=== PATIENT | female | born 1960 | race Caucasian/White ===

== ENCOUNTER 2025-01-24 10:08 | Observation (INO) ==
--- NOTE | 2024-12-24 10:15 | PAT Medication Instructions ---
Medication Instructions Date of Service December 24, 2024 Home Medications cholecalciferol (vitamin D3) 50 mcg (2,000 unit) capsule 50 mcg PO QAM mecobalamin (vitamin B12) 500 mcg chewable tablet 500 mcg PO QAM omega-3 fatty acids 500 mg capsule 500 mg PO HS Thc Gummies 1 gummy PO HS bisoprolol fumarate 5 mg tablet 5 mg PO QAM boron aspartate 3 mg (as aspartate) capsule ([place] Complex) 3 mg PO QAM famotidine 40 mg tablet 40 mg PO QAM fexofenadine 60 mg tablet (Allergy Relief (fexofenadine)) 60 mg PO QAM fluoxetine 20 mg capsule (Prozac) 20 mg PO HS meloxicam 15 mg tablet 15 mg PO HS multivitamin 1 tab PO QAM rutin 500 mg tablet 500 mg PO QAM ASK your surgeon for instructions meloxicam 15 mg tablet 15 mg PO HS STOP taking 2 weeks before surgery (or as soon as possible if surgery is within 2 weeks) omega-3 fatty acids 500 mg capsule 500 mg PO HS boron aspartate 3 mg (as aspartate) capsule (Early Branch Complex) 3 mg PO QAM rutin 500 mg tablet 500 mg PO QAM DO NOT take the morning of surgery cholecalciferol (vitamin D3) 50 mcg (2,000 unit) capsule 50 mcg PO QAM mecobalamin (vitamin B12) 500 mcg chewable tablet 500 mcg PO QAM fexofenadine 60 mg tablet (Allergy Relief (fexofenadine)) 60 mg PO QAM multivitamin 1 tab PO QAM Take morning of surgery With a small sip of water, OTHERWISE NOTHING TO EAT OR DRINK AFTER MIDNIGHT: bisoprolol fumarate 5 mg tablet 5 mg PO QAM famotidine 40 mg tablet 40 mg PO QAM Take evening before surgery Thc Gummies 1 gummy PO HS fluoxetine 20 mg capsule (Prozac) 20 mg PO HS Other Notes If you have any questions please call us at [phone] or [phone] or [phone] or [phone]
--- NOTE | 2024-12-31 11:42 | Anesthesiology Consultation ---
Date of Service December 31, 2024 Assessment & Plan (1) Encounter for pre-operative examination: - Infectious disease screening: Per assessment on 12/31/24- No known recent infectious disease contacts or current infectious disease symptoms. - Outpatient joint assessment: Pt currently scheduled for inpatient pathway. If surgeon requests review for outpatient joint pathway, patient is an acceptable candidate for outpatient joint program from anesthesia standpoint pending surgeon's office assessment that patient is motivated, has good support and completes [facility] preop requirements. - Heme/onc visit (12/11/24): "..Referred for thrombocytopenia. Labs obtained on 07/31/2024 showed platelet count of 88,000. Of note, patient has a history of anemia and leukopenia for which she underwent bone marrow biopsy with hematology [facility] in 2020. Bone marrow biopsy was negative for hematologic malignancy.. She indicates that she is scheduled for right knee rep lacement on 01/24/2025.. Possibly ITP.. Given negative bone marrow biopsy in 2020, very low likelihood of hematologic malignancy. She is scheduled for knee replacement in about 6 weeks, recommend Rechecking labs including CBC, peripheral smear review, SPEP with JONNY, quantitative immunoglobulins.. Explained to the patient that in general, do not treat thrombocytopenia unless platelet count is below 30,000. However, due to upcoming surgery will Reach out to surgeon to see if he would like platelet count higher. If that is the case, options for treatment include highdose steroids, IVIG, platelet transfusion or TPO agonist.. Abdominal ultrasound to assess for splenomegaly." > Updated CBC done 12/31/24 with normalized platelet count at 143* - Pending: * Awaiting upcoming cardiology preop evaluation (Dr. Gayathri Martinez, appt 01/10). * Heme/onc ordered Abdomen ultrasound for evaluation of thrombocytopenia hx. Completed 01/01/25- Noted cirrhotic liver morphology and complex left hepatic lobe liver cyst. Spleen normal in size/reviewed. Per [facility], they will be reviewing ultrasound findings at next visit- Awaiting upcoming hematology visit ([facility], appt 01/08). Chart Review Chart Review: Patient seen in Pre Admission Testing Teaching & Discussion Pre-Anesthesia Teaching/Discussion Notes: Instructed NPO after midnight before surgery,except medications with 15 cc of water. Medication instructions provided according to the PAT guidelines. History Surgery Operation Date: 01/24/25 10:00 Proposed Procedures p Right Total Knee Arthroplasty - Dirk Richard, Height/Weight Height: 5 ft 1.5 in Weight: 66 kg Allergies Allergy/AdvReac Type Severity Reaction Status Date / Time No Known Drug Allergies Allergy Unknown Verified 12/20/24 11:46 Medications Home Medications Medication Instructions Recorded Confirmed Last Taken cholecalciferol (vitamin D3) 50 50 mcg PO QAM 08/05/22 12/20/24 Unknown mcg (2,000 unit) capsule mecobalamin (vitamin B12) 500 mcg 500 mcg PO QAM 08/05/22 12/20/24 Unknown chewable tablet omega-3 fatty acids 500 mg capsule 500 mg PO HS 08/05/22 12/20/24 Unknown Thc Gummies 1 gummy PO 12/20/24 12/20/24 Unknown bisoprolol fumarate 5 mg tablet 5 mg PO QA 12/20/24 12/20/24 Unknown boron aspartate 3 mg (as 3 mg PO [facility] 12/20/24 12/20/24 Unknown aspartate) capsule ([place] Complex) famotidine 40 mg tablet 40 mg PO QAM 12/20/24 12/20/24 Unknown fexofenadine 60 mg tablet (Allergy 60 mg PO QA 12/20/24 12/20/24 Unknown Relief (fexofenadine)) fluoxetine 20 mg capsule (Prozac) 20 mg PO 12/20/24 12/20/24 Unknown meloxicam 15 mg tablet 15 mg PO 12/20/24 12/20/24 Unknown multivitamin 1 tab PO QA 12/20/24 12/20/24 Unknown rutin 500 mg tablet 500 mg PO [facility] 12/20/24 12/20/24 Unknown Gut Rx DIRECTED 12/31/24 Unknown Spirulina DIRECTED 12/31/24 Unknown Past Medical History Medical History Abdominal ultrasound, abnormal Abdomen ultrasound 01/01/25 ordered by heme/onc ([facility]) for evaluation of thrombocytopenia hx - Cirrhotic liver morphology + complex left hepatic lobe cyst. Spleen is normal in size. Depression History of anemia Chronic Follows with [facility]/Dr. Pack History of thrombocytopenia Follows with [facility]/Dr. Pack Lyme disease Hx Osteoarthritis Sinus tachycardia Reason for bisoprolol Follows with cardio (Dr. Gayathri Martinez) Exercise / Class Metabolic Activity II 4-5 Yardwork/Stairs/Walk up hill (One FS: No CP, no SOB) Past Family History Family History Father Heart disease Mother Diabetes Other No family history of adverse response to anesthesia Past Surgical History Surgical History H/O: hysterectomy History of anesthesia reaction "I always come out of it shivering" History of colonoscopy History of gynecologic surgery Fallopian tubes (r/t infertility) History of tonsillectomy History of wisdom tooth extraction Past Anesthesia History No Family Hx of Anesthesia Complications and Other ("I always come out of it shivering") History of PONV No Hx of PONV and No Hx of Motion Sickness Social History Smoking Status: Former smoker Do You Dip or Chew Tobacco: No Smoking End Date: Quit several years ago Hx Alcohol Use: Yes Alcohol type: wine alcohol intake frequency: 0-2 drinks per day (1-2 glasses wine/day) Hx Substance Use: Yes substance use type: marijuana (uses THC/CBD gummies daily (denies medical marijuana card)) Review of Systems Patient denies chest pain, shortness of breath, dyspnea on exertion, fever, chills, cough, wheezing, palpitations. Physical Exam Vital Signs BP 110/75 P 68 SP02 95%RA RESP 18 Physical Full cervical extension range of motion. Full TMJ range of motion. TMD 3 finger breaths Mallampati Score III Dentition: intact, + several crowns Lungs: clear throughout to auscultation Cardiac: regular rate and rhythm, no murmurs noted Spine: normal Carotid arteries: negative bruit Extremities: no LE edema Lab Results Anesthesia Preop Results Results Anesthesia Widget: WBC 4.54 K/ul (4.8-10.8) L 12/31/24 Hgb 12.5 g/dl (12.0-16.0) 12/31/24 Hct 36.3 % (37.0-47.0) L 12/31/24 Plt 143 K/uL (130-400) 12/31/24 Na 137 mmol/L (136-145) 12/11/24 K 4.3 mmol/L (3.5-5.1) 12/11/24 Cl 103 mmol/L (98-107) 12/11/24 CO2 28 mmol/L (21-32) 12/11/24 BUN 18 mg/dl (6-23) 12/11/24 Creat 1.09 mg/dl (0.6-1.2) 12/11/24 Glucose Level 100 mg/dl (70-99(Fasting)) H 12/11/24 PT 10.4 Seconds (9.0-12.0) 12/31/24 PTT 27 Seconds (21-31) 12/31/24 INR 1.0 (0.9-1.1) 12/31/24 Blood Type O Negative 12/31/24 Antibody Screen NEGATIVE 12/31/24 Testing Electrocardiogram Date: 08/23/[address]/TWA, consider anterolateral ischemia. Chest X-Ray Date: 12/31/24 FINDINGS: PA and lateral chest radiographs are obtained. No prior studies are available for comparison at the time of dictation. The cardiomediastinal silhouette is unremarkable. There is minimal bibasilar atelectasis. The lungs and pleural spaces are otherwise clear. There is no pneumothorax. The skeletal structures are osteopenic. The bony thorax appears intact. Mild degenerative change is seen in the spine. IMPRESSION: No active disease in the chest. Other Testing Abdomen ultrasound Date: 01/01/25 IMPRESSION: 1. Cirrhotic liver morphology. 2. There is a complex cystic lesion in the left hepatic lobe which contains a 1.1 cm echogenic focus. This is pathologically determined, and a contrast- enhanced liver protocol CT scan is recommended for further assessment. 3. No gallstones are seen. 4. The spleen is normal in size.
--- NOTE | 2025-01-23 13:17 | History & Physical Report ---
Date of Service January 23, 2025 Assessment & Plan (1) Osteoarthritis of right knee: We will proceed with a right total knee arthroplasty. Postoperatively, she will be started on aspirin for DVT prophylaxis and kept overnight in the hospital for postop medical management. She plans to use energy physical therapy at discharge. History of Present Illness Chief Complaint: Osteoarthritis right knee. Primary Care Provider: Dominga AguilarDO Brewster is a pleasant 64-year-old female who has been dealing with an 8-year history of increasing right knee pain. She has seen another provider in our office. X-rays and clinical exam have been diagnostic for advanced arthritis of the right knee. After failing extensive conservative treatment, she has elected proceed with a right total knee arthroplasty. Allergies Allergy/AdvReac Type Severity Reaction Status Date / Time No Known Drug Allergies Allergy Unknown Verified 12/20/24 11:46 Home Medications Medication Instructions Recorded Confirmed Type cholecalciferol (vitamin D3) 50 50 mcg PO QAM 08/05/22 12/20/24 History mcg (2,000 unit) capsule mecobalamin (vitamin B12) 500 mcg 500 mcg PO QAM 08/05/22 12/20/24 History chewable tablet omega-3 fatty acids 500 mg capsule 500 mg PO HS 08/05/22 12/20/24 History Thc Gummies 1 gummy PO 12/20/24 12/20/24 History bisoprolol fumarate 5 mg tablet 5 mg PO QAM 12/20/24 12/20/24 History boron aspartate 3 mg (as 3 mg PO QAM 12/20/24 12/20/24 History aspartate) capsule ([place] Complex) famotidine 40 mg tablet 40 mg PO QAM 12/20/24 12/20/24 History fexofenadine 60 mg tablet (Allergy 60 mg PO QAM 12/20/24 12/20/24 History Relief (fexofenadine)) fluoxetine 20 mg capsule (Prozac) 20 mg PO HS 12/20/24 12/20/24 History meloxicam 15 mg tablet 15 mg PO 12/20/24 12/20/24 History multivitamin 1 tab PO QAM 12/20/24 12/20/24 History rutin 500 mg tablet 500 mg PO QAM 12/20/24 12/20/24 History Gut Rx DIRECTED 12/31/24 History Spirulina DIRECTED 12/31/24 History Past Med/Surg History Problem List (Updated 01/23/25 @ 13:17 by Dirk Richard DO) Osteoarthritis of right knee Encounter for pre-operative examination Arthralgia of multiple joints B12 deficiency Medical History Abdominal ultrasound, abnormal Abdomen ultrasound 01/01/25 ordered by heme/onc ([facility]) for evaluation of thrombocytopenia hx - Cirrhotic liver morphology + complex left hepatic lobe cyst. Spleen is normal in size. History of thrombocytopenia Follows with [facility]/Dr. Pack Lyme disease Hx Osteoarthritis History of anemia Chronic Follows with [facility]/Dr. Pack Depression Sinus tachycardia Reason for bisoprolol Follows with cardio (Dr. Gayathri Martinez) Surgical History History of anesthesia reaction "I always come out of it shivering" History of gynecologic surgery Fallopian tubes (r/t infertility) History of colonoscopy History of wisdom tooth extraction History of tonsillectomy H/O: hysterectomy Family History Father Heart disease Mother Diabetes Other No family history of adverse response to anesthesia Social History Smoking Status: Former smoker Tobacco Type: Cigarettes Age Started Using Tobacco: 15; Age Quit Using Tobacco: 39; packs per day: 1; Smoking End Date: Quit several years ago; Second Hand Exposure: No; Do You Dip or Chew Tobacco: No; Tobacco Cessation Education Requested by Patient: No Hx Alcohol Use: Yes Alcohol type: wine Alcohol Intake Frequency: 4 or More x per/Week Hx Substance Use: Yes Preferred Language: Brazilian Communication Ability: Effective Visual Impairment: Limited Hearing Ability: Normal Creative Arts Therapist Required: No Beliefs That Will Affect Care: None marital status: Current Living Situation: Spouse current occupational status: retired How many Children do You have: 0 Other Information That Helps Us Care for You: No Feels Safe at Home: Yes Safety Concerns: Feels Safe At This Time Childhood Exposure to Second-Hand Smoke: No Diet: gluten free and vegan caffeine: Yes (2 cups of coffee a day) during the past year weight has: remained stable Dental Care, Regularly: Yes Physical Activity Frequency: Daily Seatbelt Use: always Sunscreen Use: No Assistive Devices: Contacts and Glasses Review of Systems All systems reviewed & are unremarkable except as noted in HPI & below. Physical Exam On physical exam of the right knee, she has a slight varus deformity. Tenderness palpation of the distal medial femoral condyle and over the medial joint line.. Constitutional WD/WN, vitals as above Eyes PERRL, conjunctivae normal, anicteric sclerae ENMT external ear and nose normal, oropharynx normal Neck trachea midline, no thyromegaly Respiratory normal respiratory effort Cardiovascular RRR, no murmur, no edema Gastrointestinal (Abdomen) normal bowel sounds, soft, nontender, no hepatosplenomegaly Psychiatric A+Ox3, euthymic affect Results & Data Results & Data Laboratory Results . Diagnostic Findings X-rays of the right knee show advanced osteoarthritis with joint space narrowing, osteophyte formation, and [id number] articulation. PG Care Time/CCT Total # of Minutes Spent Total Time Spent with Patient: Total time spent is greater than 50% in coordination of care (as documented) at patient's floor/unit and/or counseling patient: Coding Level of Care Code None Diagnoses Osteoarthritis of right knee M17.11
[~2025-01-24 10:08] MED LIST: BUPIVACAINE 0.5 % 5 MG/1 ML PF 10ML VIAL ONE; LIDOCAINE 2% 2 ML VIAL/AMP(20MG/ML) INFIL ONE; MIDAZOLAM HCL 1 MG/ML 2ML VIAL ONE; ONDANSETRON INJ 2 MG/ML 2 ML VIAL ONE; PROPOFOL IV EMULSION 10 MG/ML 20 ML VIAL IV ONE; ROPIVACAINE 0.5% 5 MG/ML 30 ML VIAL ONE
[2025-01-24] MEDS: LR 500ML BOLUS, THEN 15ML/HR IV SCH (10:30)
[2025-01-24] MEDS: dexAMETHasone**PF** 10 MG/ML VIAL IV SCH (10:30)
[2025-01-24] MEDS: GABAPENTIN 300 MG CAP PO SCH (10:31)
[2025-01-24] MEDS: LR 60ML/HR IV SCH (10:31)
[2025-01-24] MEDS: ACETAMINOPHEN 500 MG TAB PO SCH ×2 (10:31→15:24)
[2025-01-24] MEDS: FAMOTIDINE 20 MG TAB PO SCH (10:31)
--- NOTE | 2025-01-24 10:59 | History & Physical Bridge Note ---
Date of Service January 24, 2025 History & Physical Bridge Note I have examined the patient, reviewed the History & Physical and in the interval since the performance of the History & Physical I have noted the following changes of clinical significance: no changes noted
[2025-01-24] MEDS ORDERED: ATROPINE SULFATE 0.1 MG/ML 10ML SYR IV PRN (11:10)
[2025-01-24] MEDS ORDERED: ONDANSETRON INJ 2 MG/ML 2 ML VIAL IV PRN ×2 (11:10→14:55)
[2025-01-24] MEDS: TRANEXAMIC ACID 1,000 MG **IV Pre-op IV SCH (11:33)
[2025-01-24] MEDS ORDERED: SODIUM CHLORIDE 0.9% PF INJ 10 ML VIAL ONE (12:04)
[2025-01-24] MEDS: ORTHO JOINT ANESTHETIC ONE (12:27)
[2025-01-24] MEDS: ROPIV 0.5% 246mg, Ketorolac 30mg, EPINEPHrine 0.5mg in NSS INFIL SCH (12:27)
--- NOTE | 2025-01-24 14:20 | XRay Report ---
XR knee RT 1 or 2V routine CLINICAL HISTORY: Surgical Post Op COMPARISON: 09/02/2024 FINDINGS: Right knee prosthesis shows no hardware complication. There is expected soft tissue gas. IMPRESSION: Unremarkable postoperative exam. ACT 112: Negative or not required by law. Electronically signed by: Manuel Wilson M.D. 01/24/2025 2:19 PM
--- NOTE | 2025-01-24 14:24 | Anesthesiology Progress Note ---
Date of Service January 24, 2025 Anesthesia Post Procedure Vital Signs Vital Signs: Temp Pulse Resp BP Pulse Ox O2 Del Method O2 Flow Rate 01/24/25 14:10 73 14 113/67 97 Room Air 01/24/25 14:00 71 14 114/57 L 98 Room Air 01/24/25 13:50 96.8 F L 70 14 110/67 98 Oxymask 5 01/24/25 10:35 98.1 F 63 20 118/77 96 Room Air Pain Intensity Right Knee: Pain Intensity: 7 Transfer of Care Handoff Completed per policy Notes Mental Status: alert / awake / arousable and participated in evaluation Patient Amnestic to Procedure: Yes Nausea / Vomiting: adequately controlled Pain: adequately controlled Airway Patency, RR, SpO2: stable & adequate BP & HR: stable & adequate Hydration State: stable & adequate Neuraxial Anesthesia: was administered and sensory block is resolving Anesthetic Complications: no major complications apparent and Pt Satisfied with anesthetic care
[2025-01-24] MEDS ORDERED: NALOXONE HCL 0.4 MG/1 ML VIAL/CARP IV PRN (14:55)
[2025-01-24] MEDS ORDERED: HYDROmorphone INJ 0.5 MG/0.5 ML SYR IV PRN (14:55)
[2025-01-24] MEDS ORDERED: METOCLOPRAMIDE HCL INJ 5 MG/ML 2 ML VIAL IV PRN (14:55)
[2025-01-24] MEDS ORDERED: MAGNESIUM HYDROXIDE SUSP 30 ML UDC PO PRN (14:55)
[2025-01-24] MEDS: SODIUM CHLORIDE 0.9% 1,000 ML IV SCH (15:14)
[2025-01-24] MEDS: KETOROLAC TROMETHAMINE 15 MG/ML VIAL IV SCH (15:24)
[2025-01-24 19:55] VITALS: RESP 16; TEMP 97.9
[2025-01-24] MEDS: DOCUSATE SODIUM 100 MG CAP PO SCH (21:31)
[2025-01-24] MEDS: SENNA 8.6 MG TAB PO SCH (21:31)
[2025-01-24] MEDS: ASPIRIN 81 MG ECTAB PO SCH (21:31)
[2025-01-25 04:17] VITALS: O2SAT 95
--- NOTE | 2025-01-25 07:15 | Orthopedic Progress Note ---
Date of Service January 25, 2025 Assessment & Plan (1) Status post right knee replacement: Overall she is doing very well. She is not having much pain in the right knee. She has been up and ambulating to the bathroom. She is on aspirin for DVT prophylaxis. The nursing staff can remove the Arturo wrap and leave the Silverlon in place. She will be seen by physical therapy today for ambulation and range of motion exercises. She can be discharged to home later today. She will follow-up with orthopedics in 2 weeks. Zach Brewster was seen and examined at bedside this morning. Overall she is doing very well. She is not having much pain in the right knee. She has been up and ambulating to the bathroom. She has no complaints.. Review of Systems All systems reviewed & are unremarkable except as noted in HPI & below. Physical Exam On physical exam of the right knee, the dressing is clean and dry. Her leg is out full extension. She has active dorsiflexion and plantarflexion of her right ankle.. Results & Data Results & Data Laboratory Results . Diagnostic Findings Postoperative x-rays of the right knee show the prosthesis to be in anatomic alignment without any evidence of fracture, dislocation, or loosening.. PG Care Time/CCT Total # of Minutes Spent Total Time Spent with Patient: Total time spent is greater than 50% in coordination of care (as documented) at patient's floor/unit and/or counseling patient: Coding Level of Care Code 30879 Post Operative Follow-Up Diagnoses Status post right knee replacement Z96.651
[2025-01-25 07:16] VITALS: PULSE 68
[2025-01-25] MEDS: MULTIVITAMIN TAB PO SCH (08:29)
[2025-01-25] MEDS: FAMOTIDINE 20 MG TAB PO SCH (08:29)
[2025-01-25] MEDS: BISOPROLOL FUMARATE 5 MG TAB PO SCH (08:29)
[2025-01-25] MEDS: PNEUMOCOCCAL VACCINE (PCV20) 20-VAL CONJ-DIP CRM/PF 0.5 ML SYR IM ONE (10:56)
[2025-01-25 11:37] VITALS: BP 132/68
--- NOTE | 2025-01-27 14:49 | Operative Report ---
PG Post Operative Report Pre & Post Diagnosis Operation Date: 01/24/25 12:00 Pre-Op Diagnosis: Right Knee Osteoarthritis Post-Op Diagnosis: Right Knee Osteoarthritis I identified the patient and participated in the time-out.: Yes Procedure Operation Date: 01/24/25 12:00 Actual Procedures p Robotic Assisted Right Total Knee Arthroplasty(Right) - Dirk Richard DO Surgeon Dirk Richard DO Security Services Manager Grayson Antonio PA-C Estimated Blood Loss 30 Findings Consistent with Post-Op Diagnosis Specimens Right femoral tibial bone Description of Procedure Implants used: I used a [employer] Persona total knee arthroplasty system with a size 7 standard femur, D tibia, 31 oval patella, and a size 13 medial congruent polyethylene be aring. All components were cemented in place with Biomet cement. Narcisa arrived [facility] for the above procedure. She was seen in the preoperative holding area and the operative extremity was identified and signed. She was given a preoperative antibiotic, TXA, a spinal anesthetic and an adductor nerve block. She was taken back to the operating room and laid on the table in supine position. She was given basic sedation. The operative knee was then prepped and draped in sterile fashion. A timeout was done, and the patient and the operative extremity was properly identified. A midline incision was made directly over the patella. Dissection was taken down to the extensor mechanism. A medial parapatellar arthrotomy was used. The medial retinaculum was released and the fat pad was mostly excised. The knee was flexed and the ACL, PCL, and meniscus were removed. The alignment of the knee replacement was assisted with a [employer] robotic knee. The femoral array was pinned in the distal femur and the tibial array was pinned using a percutaneous technique in the upper shaft of the tibia. The robot was appropriately calibrated and the structure of the knee was mapped out. The components were then manipulated on the screen to account for any malalignment and to assist in gap balancing. Once I was happy with the placement of the components on the screen, a distal femoral cutting guide was brought in place. The distal femur was then resected. The femur measured to be a size 7. A 4-in-1 cutting block was then put into place by the robot and 2 peg holes were drilled. The 4-in-1 cutting block was then impacted into place and anterior, posterior, and chamfer cuts were made. The cutting block was then brought down to the tibia and pinned into place. The proximal tibia was then resected. The posterior aspect of the knee was then opened up and any additional meniscus fragments and osteophytes were removed. The tibia measured to be a size D. The tibial plate was then placed in the appropriate rotation and the tibia was drilled and punched. Trial components were then placed. The patella was then everted and 9 mm was resected off the posterior aspect of the patella. The patella measured to be a size 31 oval. 3 peg holes were then drilled. A trial patella was placed. A size 13 medial congruent polyethylene insert was then trialed. The knee was brought through a full range of motion and felt to be stable. Trial components were then removed. The surrounding soft tissues were injected with 100 cc of an orthopedic pain control cocktail. All components were then cemented into place with Biomet cement. The final polyethylene insert was then snapped into place. Once cement was dry the tourniquet was deflated. Hemostasis was obtained. A dilute betadyne lavage was then done for 3 minutes. The joint was then irrigated with normal saline solution. The medial parapatellar arthrotomy was then closed with #1 Vicryl suture. The skin was closed with 2-0 Vicryl, 3-0V lock suture, and Ismael zip line. A soft compressive dressing was placed. She was then transferred to a hospital bed and taken to the postanesthesia care unit in stable condition. She tolerated the procedure well. Grayson Antonio PA-C, was present for the entire procedure. He was critical for patient positioning, prepping, draping, retraction exposure, wound closure and application of sterile dressing. I attest to the content of the Intraoperative Record and any orders documented therein. Any exceptions are noted below.
== END 2025-01-25 12:02 | disposition home or self-care (01) ==
LOC: ASU 10:08 → 3E 10:08

== ENCOUNTER 2025-05-19 09:08 | Observation (INO) ==
--- NOTE | 2025-05-14 13:12 | Anesthesiology Consultation ---
Date of Service May 14, 2025 Assessment & Plan (1) Encounter for pre-operative examination: Chart Review Chart Review: Acceptable Risk for Surgery and Patient NOT seen in Pre Admission Testing -Pt cleared by Cardio after normal DSE prior to R TKA. -Outpatient joint assessment: Pt currently scheduled for inpatient pathway. If surgeon requests review for outpatient joint pathway, patient is an acceptable candidate for outpatient joint program from anesthesia standpoint pending surgeon's office assessment that patient is motivated, has good support and completes [facility] preop requirements. -Infectious Disease screening: Per PAT nursing assessment on 05/14/25, No known infectious disease contacts in past 10 days or current infectious disease symptoms. No recent travel outside the country. History Surgery Operation Date: 05/19/25 13:00 Proposed Procedures p Robotic Assisted Left Total Knee Arthroplasty - Dirk Richard DO Height/Weight Height: 5 ft 1 in Weight: 62.596 kg Allergies Allergy/AdvReac Type Severity Reaction Status Date / Time No Known Drug Allergies Allergy Unknown Verified 05/14/25 11:23 Medications Home Medications Medication Instructions Recorded Confirmed Last Taken cholecalciferol (vitamin D3) 50 50 mcg PO QAM 08/05/22 05/14/25 1 Week Ago mcg (2,000 unit) capsule ~01/17/25 omega-3 fatty acids 500 mg capsule 500 mg PO 08/05/22 05/14/25 1 Week Ago ~01/17/25 Thc Gummies 1 gummy PO 12/20/24 05/14/25 01/23/25 20:00 bisoprolol fumarate 5 mg tablet 5 mg PO [facility] 12/20/24 05/14/25 01/24/25 09:00 famotidine 40 mg tablet 40 mg PO [facility] 12/20/24 05/14/25 01/24/25 09:00 fexofenadine 60 mg tablet (Allergy 60 mg PO QA 12/20/24 05/14/25 01/23/25 10:00 Relief (fexofenadine)) fluoxetine 20 mg capsule (Prozac) 20 mg PO 12/20/24 05/14/25 01/23/25 22:00 meloxicam 15 mg tablet 15 mg PO 12/20/24 05/14/25 1 Week Ago ~01/17/25 multivitamin 1 tab PO [facility] 12/20/24 05/14/25 1 Week Ago ~01/17/25 tramadol 50 mg tablet 50 mg PO BID PRN Pain 01/24/25 05/14/25 01/23/25 10:00 magnesium 250 mg tablet 250 mg PO HS 05/14/25 05/14/25 Unknown Past Medical History Medical History (Updated 05/14/25 @ 16:28 by Reta Castellano PA-C) Abdominal ultrasound, abnormal Abdomen ultrasound 01/01/25 ordered by heme/onc ([facility]) for evaluation of thrombocytopenia hx - Cirrhotic liver morphology + complex left hepatic lobe cyst. Spleen is normal in size. Depression History of anemia Chronic Follows with [facility]/Dr. Pack History of thrombocytopenia Follows with [facility]/Dr. Pack; s/p BM bx 2020 found no hematologic malignancy; pt was seen 12/2024 prior to R TKA for preop eval/recommendations: 'updated labs show resolution of thrombocytopenia. Can proceed with knee replacement as scheduled" Lyme disease Hx Osteoarthritis Osteoporosis Sinus tachycardia Reason for bisoprolol Follows with cardio (Dr. Gayathri Martinez) Past Family History Family History Father Heart disease Mother Diabetes Other No family history of adverse response to anesthesia Past Surgical History Surgical History (Updated 05/14/25 @ 13:21 by Reta Castellano PA-C) H/O: hysterectomy History of anesthesia reaction "I always come out of it shivering" History of colonoscopy History of gynecologic surgery Fallopian tubes (r/t infertility) History of tonsillectomy History of total right knee replacement 01/24/25: R TKA: SAB (L3-4 x 1 attempt), PNB, MAC History of wisdom tooth extraction Social History Smoking Status: Former smoker Do You Dip or Chew Tobacco: No Smoking End Date: 2004 Hx Alcohol Use: Yes Alcohol type: beer, wine and hard liquor alcohol intake frequency: a few times a week Hx Substance Use: Yes substance use type: marijuana Substance Use Type Other:: ocassional Last Used Substance Other:: nightly use Lab Results Anesthesia Preop Results Results Anesthesia Widget: WBC 4.45 K/ul (4.8-10.8) L 05/12/25 Hgb 12.6 g/dL (12.0-16.0) 05/12/25 Hct 36.0 % (37.0-47.0) L 05/12/25 Plt 172 K/uL (130-400) 05/12/25 Na 135 mmol/L (136-145) L 05/12/25 K 4.4 mmol/L (3.5-5.1) 05/12/25 Cl 102 mmol/L (98-107) 05/12/25 CO2 27 mmol/L (21-32) 05/12/25 BUN 17 mg/dl (6-23) 05/12/25 Creat 1.09 mg/dl (0.6-1.2) 05/12/25 Glucose Level 106 mg/dl (70-99(Fasting)) H 05/12/25 PT 10.6 Seconds (9.0-12.0) 05/12/25 PTT 28 Seconds (21-31) 05/12/25 INR 1.0 (0.9-1.1) 05/12/25 Blood Type O Negative 05/12/25 Antibody Screen NEGATIVE 05/12/25 Testing Electrocardiogram Date: 08/23/24 Findings: + SB @ (56bpm) ST and TWA, consider anterolateral ischemia. Chest X-Ray Date: 12/31/24 Findings: + NAD Stress Test Date: 01/22/25 Type: DSE nl stress ECG. no arrhythmias noted with stress nl LV cavity size, myocardial thickness, WM, and systolic function. nl Dobutamine response with stress with appropriate improvement in the LVEF to 70-75% with no new WMA.
--- NOTE | 2025-05-15 12:24 | History & Physical Report ---
Date of Service May 15, 2025 Assessment & Plan (1) Osteoarthritis of left knee: We will proceed with a left total knee arthroplasty. Postoperatively, she will be started on aspirin for DVT prophylaxis and kept overnight in the hospital for postop medical management. She plans to use energy physical therapy after discharge. History of Present Illness Chief Complaint: Osteoarthritis left knee. Primary Care Provider: Dominga Aguilar DO Narcisa is a pleasant 64-year-old female who I did a right knee replacement on about 3 months ago. She is doing very well with that. She is now doing with left knee pain. X-rays and clinical exam have been diagnostic for advanced arthritis of the left knee. After failing conservative treatment, she has elected to proceed with a left total knee arthroplasty.. Allergies Allergy/AdvReac Type Severity Reaction Status Date / Time No Known Drug Allergies Allergy Unknown Verified 05/14/25 11:23 Home Medications Medication Instructions Recorded Confirmed Type cholecalciferol (vitamin D3) 50 50 mcg PO QAM 08/05/22 05/14/25 History mcg (2,000 unit) capsule omega-3 fatty acids 500 mg capsule 500 mg PO HS 08/05/22 05/14/25 History Thc Gummies 1 gummy PO HS 12/20/24 05/14/25 History bisoprolol fumarate 5 mg tablet 5 mg PO QAM 12/20/24 05/14/25 History famotidine 40 mg tablet 40 mg PO QAM 12/20/24 05/14/25 History fexofenadine 60 mg tablet (Allergy 60 mg PO QAM 12/20/24 05/14/25 History Relief (fexofenadine)) fluoxetine 20 mg capsule (Prozac) 20 mg PO HS 12/20/24 05/14/25 History meloxicam 15 mg tablet 15 mg PO HS 12/20/24 05/14/25 History multivitamin 1 tab PO QAM 12/20/24 05/14/25 History tramadol 50 mg tablet 50 mg PO BID PRN Pain 01/24/25 05/14/25 History magnesium 250 mg tablet 250 mg PO HS 05/14/25 05/14/25 History Past Med/Surg History Problem List Osteoarthritis of left knee Osteoporosis Status post right knee replacement (~01/2025) Osteoarthritis of right knee Arthralgia of multiple joints B12 deficiency Medical History Osteoporosis Abdominal ultrasound, abnormal Abdomen ultrasound 01/01/25 ordered by heme/onc ([facility]) for evaluation of thrombocytopenia hx - Cirrhotic liver morphology + complex left hepatic lobe cyst. Spleen is normal in size. History of thrombocytopenia Follows with [facility]/Dr. Pack; s/p BM bx 2020 found no hematologic malignancy; pt was seen 12/2024 prior to R TKA for preop eval/recommendations: 'updated labs show resolution of thrombocytopenia. Can proceed with knee replacement as scheduled" Lyme disease Hx Osteoarthritis History of anemia Chronic Follows with CCP/Dr. Pack Depression Sinus tachycardia Reason for bisoprolol Follows with cardio (Dr. Gayathri Martinez) Surgical History History of total right knee replacement 01/24/25: R TKA: SAB (L3-4 x 1 attempt), PNB, MAC History of anesthesia reaction "I always come out of it shivering" History of gynecologic surgery Fallopian tubes (r/t infertility) History of colonoscopy History of wisdom tooth extraction History of tonsillectomy H/O: hysterectomy Family History Father Heart disease Mother Diabetes Other No family history of adverse response to anesthesia Social History Smoking Status: Former smoker Tobacco Type: Cigarettes Age Started Using Tobacco: 15; Age Quit Using Tobacco: 39; packs per day: 1; Smoking End Date: 2004; Second Hand Exposure: No; Do You Dip or Chew Tobacco: No; Tobacco Cessation Education Requested by Patient: No Hx Alcohol Use: Yes Alcohol type: beer, wine and hard liquor Alcohol Intake Frequency: 4 or More x per/Week Hx Substance Use: Yes Last Used Substance Other:: nightly use Substance Use Type Other:: ocassional Preferred Language: Bahamian Communication Ability: Effective Visual Impairment: Limited Hearing Ability: Normal Order Clerk Required: No Beliefs That Will Affect Care: None marital status: Current Living Situation: Spouse current occupational status: retired How many Children do You have: 0 Other Information That Helps Us Care for You: No Feels Safe at Home: Yes Safety Concerns: Feels Safe At This Time Childhood Exposure to Second-Hand Smoke: No Diet: gluten free and vegan caffeine: Yes (2 cups of coffee a day) during the past year weight has: remained stable Dental Care, Regularly: Yes Physical Activity Frequency: Daily Seatbelt Use: always Sunscreen Use: No Assistive Devices: Contacts Review of Systems All systems reviewed & are unremarkable except as noted in HPI & below. Physical Exam On physical exam the left knee, she has slight varus deformity. Tenderness palpation of the distal medial femoral condyle and over the medial joint line.. Constitutional WD/WN, vitals as above Eyes PERRL, conjunctivae normal, anicteric sclerae ENMT external ear and nose normal, oropharynx normal Neck trachea midline, no thyromegaly Respiratory normal respiratory effort Cardiovascular RRR, no murmur, no edema Gastrointestinal (Abdomen) normal bowel sounds, soft, nontender, no hepatosplenomegaly Psychiatric A+Ox3, euthymic affect Results & Data Results & Data Laboratory Results . Diagnostic Findings . PG Care Time/CCT Total # of Minutes Spent Total Time Spent with Patient: Total time spent is greater than 50% in coordination of care (as documented) at patient's floor/unit and/or counseling patient: Coding Level of Care Code None Diagnoses Osteoarthritis of left knee M17.12
[~2025-05-19 09:08] MED LIST changes: +BUPIVACAINE 0.25% PF 30 ML VIAL ONE; +DEXAMETHASONE SOD INJ 4 MG/ML VIAL ONE; +EPINEPHrine INJ 1 MG/ML AMP ONE; -LIDOCAINE 2% 2 ML VIAL/AMP(20MG/ML) INFIL ONE; -MIDAZOLAM HCL 1 MG/ML 2ML VIAL ONE; -ONDANSETRON INJ 2 MG/ML 2 ML VIAL ONE; -PROPOFOL IV EMULSION 10 MG/ML 20 ML VIAL IV ONE; -ROPIVACAINE 0.5% 5 MG/ML 30 ML VIAL ONE
[2025-05-19] MEDS: LR 60ML/HR IV SCH (09:43)
[2025-05-19] MEDS ORDERED: LIDOCAINE 2% 2 ML VIAL/AMP(20MG/ML) INFIL ONE (09:43)
[2025-05-19] MEDS ORDERED: MIDAZOLAM HCL 1 MG/ML 2ML VIAL ONE (09:43)
[2025-05-19] MEDS ORDERED: ONDANSETRON INJ 2 MG/ML 2 ML VIAL ONE (09:43)
[2025-05-19] MEDS: dexAMETHasone**PF** 10 MG/ML VIAL IV SCH (09:43)
[2025-05-19] MEDS ORDERED: DEXAMETHASONE SOD INJ 4 MG/ML VIAL ONE (09:43)
[2025-05-19] MEDS ORDERED: PROPOFOL IV EMULSION 10 MG/ML 20 ML VIAL IV ONE (09:43)
[2025-05-19] MEDS: ACETAMINOPHEN 500 MG TAB PO SCH ×2 (09:44→14:06)
[2025-05-19] MEDS: FAMOTIDINE 20 MG TAB PO SCH (09:44)
[2025-05-19] MEDS: GABAPENTIN 300 MG CAP PO SCH (09:44)
[2025-05-19] MEDS ORDERED: PROMETHAZINE HCL 6.25 MG in SODIUM CHLORIDE 0.9% 50 ML IV PRN (09:46)
[2025-05-19] MEDS ORDERED: ONDANSETRON INJ 2 MG/ML 2 ML VIAL IV PRN ×2 (09:46→13:36)
[2025-05-19] MEDS ORDERED: ATROPINE SULFATE 0.1 MG/ML 10ML SYR IV PRN (09:46)
--- NOTE | 2025-05-19 09:58 | History & Physical Bridge Note ---
Date of Service May 19, 2025 History & Physical Bridge Note I have examined the patient, reviewed the History & Physical and in the interval since the performance of the History & Physical I have noted the following changes of clinical significance: no changes noted
[2025-05-19] MEDS: TRANEXAMIC ACID 1,000 MG **IV Pre-op IV SCH (10:32)
[2025-05-19] MEDS ORDERED: ePHEDrine sulfate 50 MG/5 ML SYR ONE (10:57)
[2025-05-19] MEDS: ROPIV 0.5% 246mg, Ketorolac 30mg, EPINEPHrine 0.5mg in NSS INFIL SCH (11:16)
[2025-05-19] MEDS: ORTHO JOINT ANESTHETIC ONE (11:16)
--- NOTE | 2025-05-19 11:53 | Operative Report ---
PG Post Operative Report Pre & Post Diagnosis Operation Date: 05/19/25 11:00 Pre-Op Diagnosis: Left Knee Osteoarthritis Post-Op Diagnosis: Left Knee Osteoarthritis I identified the patient and participated in the time-out.: Yes Procedure Operation Date: 05/19/25 11:00 Actual Procedures p Robotic Assisted Left Total Knee Arthroplasty(Left) - Dirk Richard DO Surgeon Dirk Richard DO [employer] Grayson Riley PA-C Estimated Blood Loss 30 Findings Consistent with Post-Op Diagnosis Specimens Left femoral and tibial bone Description of Procedure Implants used: I used a [employer] Person[employer] total knee arthroplasty system with a size 7 CR narrow femur, D tibia, 29 patella, and a size 11 medial congruent polyethylene bearing. All components were press-fit in place. Narcisa arrived [facility] for the above procedure. She was seen in the preoperative holding area and the operative extremity was identified and signed. She was given a preoperative antibiotic, TXA, a spinal anesthetic and an adductor nerve block. She was taken back to the operating room and laid on the table in supine position. She was given basic sedation. The operative knee was then prepped and draped in sterile fashion. A timeout was done, and the patient and the operative extremity was properly identified. A midline incision was made directly over the patella. Dissection was taken down to the extensor mechanism. A medial parapatellar arthrotomy was used. The medial retinaculum was released and the fat pad was mostly excised. The knee was flexed and the ACL, PCL, and meniscus were removed. The alignment of the knee replacement was assisted with a [employer] robotic knee. The femoral array was pinned in the distal femur and the tibial array was pinned using a percutaneous technique in the upper shaft of the tibia. The robot was appropriately calibrated and the structure of the knee was mapped out. The components were then manipulated on the screen to account for any malalignment and to assist in gap balancing. Once I was happy with the placement of the components on the screen, a distal femoral cutting guide was brought in place. The distal femur was then resected. The femur measured to be a size 7. A 4-in-1 cutting block was then put into place by the robot and 2 peg holes were drilled. The 4-in-1 cutting block was then impacted into place and anterior, posterior, and chamfer cuts were made. The cutting block was then brought down to the tibia and pinned into place. The proximal tibia was then resected. The posterior aspect of the knee was then opened up and any additional meniscus fragments and osteophytes were removed. The tibia measured to be a size D. The tibial plate was then placed in the appropriate rotation and the tibia was drilled and punched. Trial components were then placed. The patella was then everted and 9 mm was resected off the posterior aspect of the patella. The patella measured to be a size 29. 3 peg holes were then drilled. A trial patella was placed. A size 11 medial congruent polyethylene insert was then trialed. The knee was brought through a full range of motion and felt to be stable. Trial components were then removed. The surrounding soft tissues were injected with 100 cc of an orthopedic pain control cocktail. All components were then press-fit into place. The final polyethylene insert was then snapped into place. The tourniquet was deflated. Hemostasis was obtained. Irrisept was then done for 3 minutes. The joint was then irrigated with normal saline solution. The medial parapatellar arthrotomy was then closed with #1 Vicryl suture. The skin was closed with 2-0 Vicryl, 3-0V lock suture, and Aguilar Zipline. A soft compressive dressing was placed. She was then transferred to a hospital bed and taken to the postanesthesia care unit in stable condition. She tolerated the procedure well. Grayson Antonio PA-C, was present for the entire procedure. He was critical for patient positioning, prepping, draping, retraction exposure, wound closure and application of sterile dressing. I attest to the content of the Intraoperative Record and any orders documented therein. Any exceptions are noted below.
--- NOTE | 2025-05-19 12:51 | Anesthesiology Progress Note ---
Date of Service May 19, 2025 Anesthesia Post Procedure Vital Signs Vital Signs: Temp Pulse Pulse Resp BP Pulse Ox O2 Del Method 05/19/25 12:40 69 12 115/64 96 Room Air 05/19/25 12:30 68 16 120/56 L 96 Room Air 05/19/25 12:20 36 C L 90 16 111/57 L 98 Room Air 05/19/25 09:23 37.1 C 63 16 129/79 96 Room Air Transfer of Care Handoff Completed per policy Notes Mental Status: alert / awake / arousable Patient Amnestic to Procedure: Yes Nausea / Vomiting: adequately controlled Pain: adequately controlled Airway Patency, RR, SpO2: stable & adequate BP & HR: stable & adequate Hydration State: stable & adequate Neuraxial Anesthesia: was administered and sensory block is resolving Anesthetic Complications: no major complications apparent and Pt Satisfied with anesthetic care
--- NOTE | 2025-05-19 12:56 | XRay Report ---
XR knee LT 1 or 2V routine CLINICAL HISTORY: Surgical Post Op COMPARISON: 08/26/2024 FINDINGS: Left knee prosthesis shows no hardware complication. There is expected soft tissue gas. IMPRESSION: Unremarkable postoperative exam. ACT 112: Negative or not required by law. Electronically signed by: Manuel Wilson M.D. 05/19/2025 12:54 PM
[2025-05-19] MEDS ORDERED: NALOXONE HCL 0.4 MG/1 ML VIAL/CARP IV PRN (13:36)
[2025-05-19] MEDS ORDERED: MAGNESIUM HYDROXIDE SUSP 30 ML UDC PO PRN (13:36)
[2025-05-19] MEDS ORDERED: METOCLOPRAMIDE HCL INJ 5 MG/ML 2 ML VIAL IV PRN (13:36)
[2025-05-19] MEDS ORDERED: HYDROmorphone INJ 0.5 MG/0.5 ML SYR IV PRN (13:36)
[2025-05-19] MEDS: LR 500ML BOLUS, THEN 15ML/HR IV SCH (13:39)
[2025-05-19] MEDS: SODIUM CHLORIDE 0.9% 1,000 ML IV SCH (14:03)
[2025-05-19] MEDS: KETOROLAC TROMETHAMINE 15 MG/ML VIAL IV SCH (18:10)
[2025-05-19] MEDS: ASPIRIN 81 MG ECTAB PO SCH (20:08)
[2025-05-19] MEDS: DOCUSATE SODIUM 100 MG CAP PO SCH (20:08)
[2025-05-19] MEDS: SENNA 8.6 MG TAB PO SCH (20:08)
--- NOTE | 2025-05-20 07:35 | Orthopedic Progress Note ---
Date of Service May 20, 2025 Assessment & Plan (1) Status post total left knee replacement: * Continue Current Treatment * Disposition: home * Daily treatment: Physical Therapy/ Occupational Therapy per protocol * Weight bearing status: WBAT * Continue to monitor for ABLA * Pain control * DVT prophylaxis, ASA/Eliquis * Office/hospital f/u 2 weeks for progress check and staple/suture removal * Plan for discharge today pending PT/OT clearance Subjective .Active Problems: S/p left TKA POD 1 64 y/o female s/p left TKA. Doing well overall, pain managed and improved function. Denies fever/chills, chest pain/SOB, nausea/vomiting. Otherwise no complaints. Review of Systems All systems reviewed & are unremarkable except as noted in HPI & below. Physical Exam . * General: Alert and oriented, no acute distress * Constitutional: well-developed, well-nourished. * Respiratory: Normal respiratory effort, no distress * Gastrointestinal: No tenderness to palpation, no rigidity or guarding. * Skin: No rash or lesion. * Neurologic: Grossly normal * Musculoskeletal: left knee surgical dressing CDI, not removed for exam. Otherwise no obvious deformity or overlying skin changes RLE. Diffuse TTP distal thigh and knee region. Otherwise no specific tenderness of proximal thigh, lower leg, foot/ankle. AROM knee flexion 95 degrees. AROM foot/ankle intact. Sensation intact plantar/dorsal foot. Brisk capillary refill. Results & Data Results & Data Laboratory Results . Diagnostic Findings . Knee X-Ray 05/19/25 12:23 XR knee LT 1 or 2V routine CLINICAL HISTORY: Surgical Post Op COMPARISON: 08/26/2024 FINDINGS: Left knee prosthesis shows no hardware complication. There is expected soft tissue gas. IMPRESSION: Unremarkable postoperative exam. ACT 112: Negative or not required by law. Electronically signed by: Manuel Wilson M.D. 05/19/2025 12:54 PM PG Care Time/CCT Total # of Minutes Spent Total Time Spent with Patient: Total time spent is greater than 50% in coordination of care (as documented) at patient's floor/unit and/or counseling patient: Coding Level of Care Code 06114 Post Operative Follow-Up Diagnoses Status post total left knee replacement Z96.652
[2025-05-20 07:39] VITALS: RESP 18; TEMP 98.1
[2025-05-20] MEDS: BISOPROLOL FUMARATE 5 MG TAB PO SCH (08:10)
[2025-05-20] MEDS: FAMOTIDINE 40 MG TABLET PO SCH (08:11)
[2025-05-20] MEDS: MULTIVITAMIN TAB PO SCH (08:11)
[2025-05-20 09:43] VITALS: BP 130/66; PULSE 78; O2SAT 97
== END 2025-05-20 10:53 | disposition home or self-care (01) ==
LOC: ASU 09:08 → 3E 09:08
DX: Z79.899 Other long term (current) drug therapy; M17.12 Unilateral primary osteoarthritis, left knee; M81.0 Age-related osteoporosis without current pathological fracture; Z87.891 Personal history of nicotine dependence